=== PATIENT | female | born 1980 | race Two or more races ===

== ENCOUNTER 2019-08-19 18:38 | Emergency (ER) | payer OTHER ==
[~2019-08-19] VITALS: Ht 160 cm; Wt 61.2 kg
== END 2019-08-19 22:45 | disposition home or self-care (01) ==
LOC: ER 18:38
DX: T78.49XA Other allergy, initial encounter (principal); X58.XXXA Exposure to other specified factors, initial encounter

== ENCOUNTER 2019-08-28 10:43 | Emergency (ER) | payer OTHER ==
[~2019-08-28] VITALS: Ht 154.9 cm; Wt 59.4 kg
== END 2019-08-28 14:49 | disposition home or self-care (01) ==
LOC: ER 10:43
DX: R07.0 Pain in throat (principal); B96.0 Mycoplasma pneumoniae [M. pneumoniae] as the cause of diseases classified elsewhere; Z03.818 Encounter for observation for suspected exposure to other biological agents ruled out